=== PATIENT | female | born 1995 | race Two or more races ===

== ENCOUNTER 2024-03-23 17:50 | Inpatient (IN) | payer MEDICAID, OTHER ==
[~2024-03-23] VITALS: Ht 170.2 cm; Wt 260.0 kg
[2024-03-23 18:28] LABS: Urine Bacteria FEW /hpf (None Seen); Urine Blood 1+ /uL (Negative); Urine Clarity Turbid (Clear); Urine Color Yellow (Yellow); Urine Mucus FEW (None Seen); Urine Protein, UAD 1+ (Negative); Urine Urobilinogen Normal (Negative); Urine WBC 10 /hpf (0 - 5)
[2024-03-23 18:57] LABS: Basophils # (auto) 0.1 10 ^3/uL (0-0.2); Basophils % (auto) 0.9 % (0.0-2.0); Eosinophils # (auto) 0.1 10 ^3/uL (0-0.8); Eosinophils % (auto) 0.5 % (0.0-7.0); Hematocrit 42.4 % (36.0-46.0); Hemoglobin 14.1 g/dL (12.2-16.2); Mean Corpuscular Hemoglobin 27.6 pg (28.0-32.0); Mean Corpuscular Hgb Conc. 33.2 g/dL (32.0-36.0); Mean Corpuscular Volume 83.2 fL (80.0-100.0); Monocytes # (auto) 0.8 10 ^3/uL (0-1.3); Monocytes % (auto) 5.9 % (0.0-12.0); Neutrophils # (auto) 10.2 10 ^3/uL (1.6-8.6); Neutrophils % (auto) 77.7 % (37.0-80.0); Nucleated Red Blood Cells % 0.2 %; Platelet Count (auto) 238 10^3/uL (140-450); Red Cell Distribution Width 14.2 % (11.8-14.3); White Blood Cell 13.2 10^3/uL (4.4-10.8)
[2024-03-23 19:00] LABS: Chloride 107 mmol/L (98-107); Potassium 4.2 mmol/L (3.5-5.1); Sodium 138 mmol/L (136-145)
[2024-03-23 19:01] LABS: Anion Gap 6 (5-15); Calcium 9.3 mg/dL (8.7-10.4); Carbon Dioxide 25 mmol/L (20-31)
[2024-03-23 19:06] LABS: BUN/Creatinine Ratio 10.9 (10.0-20.0); Blood Urea Nitrogen 10 mg/dL (9-23); Glucose 96 mg/dL (74-106)
[2024-03-23] MEDS ORDERED: MORPHINE SULFATE INJ 2 MG/ml SYRG IV PRN ×2 (23:30)
[2024-03-23] MEDS ORDERED: hydrALAZINE HCL 20 MG/ML VL IV PRN (23:30)
[2024-03-23 23:37] VITALS: PULSE 86; RESP 16; O2SAT 16
[2024-03-23] MEDS: SODIUM CHLORIDE 0.9% 1,000 ML IV ONE (23:47)
[2024-03-23] MEDS: cefTRIAXone 1GM/50ML D5W 50 ML IV ONE (23:54)
[2024-03-23] MEDS: cefTRIAXone 1GM/50ML D5W 50 ML IV SCH (23:55)
[2024-03-24 00:18] LABS: Amphetamine Screen, Urine Neg (NEGATIVE)
[2024-03-24 00:19] LABS: Barbiturate Scree,Urine Neg (NEGATIVE); Benzodiazephine Screen, Urine Neg (NEGATIVE); Cocaine Screen, Urine Pos (NEGATIVE)
[2024-03-24 00:20] LABS: Cannabinoid Screen, Urine Neg (NEGATIVE); Opiate Scree,Urine Neg (NEGATIVE); Phencyclidine Screen, Urine Neg (NEGATIVE)
[2024-03-24] MEDS: TAMSULOSIN HYDROCHLORIDE 0.4 MG CAP PO ONE (01:21)
[2024-03-24] MEDS: SODIUM CHLORIDE 0.9% 1,000 ML IV SCH (07:15)
[2024-03-24 07:50] VITALS: PULSE 80; RESP 18; O2SAT 96
[2024-03-24] MEDS: IOHEXOL 300 MG/ML 100ML BOTTLE IJ ONE (15:50)
[2024-03-24] MEDS: cefTRIAXone 1GM/50ML D5W 50 ML IV ONE (16:35)
[2024-03-24] MEDS: TAMSULOSIN HYDROCHLORIDE 0.4 MG CAP PO SCH (18:32)
[2024-03-24] MEDS: ACETAMINOPHEN 325 MG TAB PO ONE (22:56)
[2024-03-24 23:06] VITALS: PULSE 74; RESP 16; O2SAT 96
[2024-03-25 02:55] VITALS: PULSE 81; RESP 18; O2SAT 96
[2024-03-25 04:36] LABS: Basophils # (auto) 0 10 ^3/uL (0-0.2); Basophils % (auto) 0.5 % (0.0-2.0); Eosinophils # (auto) 0.2 10 ^3/uL (0-0.8); Eosinophils % (auto) 2.1 % (0.0-7.0); Hemoglobin 12.9 g/dL (12.2-16.2); Lymphocytes # (auto) 2.8 10 ^3/uL (0.4-5.4); Lymphocytes % (auto) 34.5 % (10.0-50.0); Mean Corpuscular Hemoglobin 28.4 pg (28.0-32.0); Mean Corpuscular Volume 83.4 fL (80.0-100.0); Monocytes # (auto) 0.6 10 ^3/uL (0-1.3); Monocytes % (auto) 7.4 % (0.0-12.0); Neutrophils # (auto) 4.5 10 ^3/uL (1.6-8.6); Neutrophils % (auto) 55.5 % (37.0-80.0); Platelet Count (auto) 215 10^3/uL (140-450); Red Blood Cells 4.55 10^6/uL (4.0-5.20); Red Cell Distribution Width 14.2 % (11.8-14.3); White Blood Cell 8.2 10^3/uL (4.4-10.8)
[2024-03-25 04:46] LABS: Chloride 108 mmol/L (98-107); Potassium 3.8 mmol/L (3.5-5.1); Sodium 140 mmol/L (136-145)
[2024-03-25 04:47] LABS: Anion Gap 6 (5-15); Carbon Dioxide 26 mmol/L (20-31)
[2024-03-25 04:48] LABS: Calcium 9.1 mg/dL (8.7-10.4)
[2024-03-25 04:52] LABS: Glucose 91 mg/dL (74-106)
[2024-03-25 04:53] LABS: BUN/Creatinine Ratio 15.4 (10.0-20.0); Blood Urea Nitrogen 10 mg/dL (9-23)
[2024-03-25 07:30] VITALS: PULSE 78; RESP 20; O2SAT 96
[2024-03-25 08:56] VITALS: BP 112/71; PULSE 80; RESP 18; TEMP 98.1; O2SAT 97
[2024-03-25 09:00] VITALS: BP 112/71; PULSE 80; RESP 18; TEMP 98.1; O2SAT 96
[2024-03-25] MEDS: cefTRIAXone 1GM/50ML D5W 50 ML IV SCH (10:53)
[2024-03-25] MEDS ORDERED: NITR-87 PO (12:44)
== END 2024-03-25 13:08 | disposition home or self-care (01) | DRG 465 ==
LOC: ER 17:50 → OVERFLOW 23:39 → CENTRAL 03-25 08:46
PROVIDERS: ADMIT Internal Medicine Geriatric Medicine; ATTEND Internal Medicine Geriatric Medicine
DX: N20.2 Calculus of kidney with calculus of ureter (principal); R65.10 Systemic inflammatory response syndrome (SIRS) of non-infectious origin without acute organ dysfunction; E66.01 Morbid (severe) obesity due to excess calories; N30.00 Acute cystitis without hematuria; Z90.49 Acquired absence of other specified parts of digestive tract; Z83.3 Family history of diabetes mellitus; Z68.41 Body mass index [BMI] 40.0-44.9, adult
CPT/HCPCS: 36415; 74176; 74178; 80048; 80307; 80320; 81001; 83036; 84702; 85025; 87040; 87086; 99291; G0378